=== PATIENT | female | born 1975 | race African-American/Black ===

== ENCOUNTER → 2024-12-01 | Day surgery (SDC) | payer OTHER ==
[~2024-12-01] VITALS: Ht 167.6 cm; Wt 163.6 kg
[~2024-12-01] MED LIST: FLUT16H NASAL; LOSA-382 PO; OXYGEN THERAPY IH SCH; PROPOFOL 1% 20 ML VIAL IVP ONE; SODIUM CHLORIDE 0.9% 1,000 ML ONE
[2024-12-01] MEDS: SODIUM CHLORIDE 0.9% 1,000 ML IV ONE (07:26)
== END | disposition still patient (30) ==
LOC: SURGERY 06:41
PROVIDERS: ATTEND Specialist
DX: D64.9 Anemia, unspecified (principal); K64.0 First degree hemorrhoids; Z82.49 Family history of ischemic heart disease and other diseases of the circulatory system; G47.30 Sleep apnea, unspecified; Z88.8 Allergy status to other drugs, medicaments and biological substances; Z98.51 Tubal ligation status; Z98.890 Other specified postprocedural states; Z79.899 Other long term (current) drug therapy
CPT/HCPCS: 45378; 36415; 84703; J2704; J7030